=== PATIENT | female | born 1980 | race Caucasian/White ===

== ENCOUNTER → 2017-06-21 | Day surgery (SDC) | payer OTHER ==
[~2017-06-21] MED LIST: ADDERALL 30 MG30 MG; FENTANYL CITRATE/PF 100MCG/2 ML INJ ONE; HYOSCYAMINE SULFATE 0.5 MG/ML AMP ONE; LEVSIN0.125 MG; LIDOCAINE HCL 2% LOCAL INJ 5 ML SDV VIAL INJ ONE; LYRICA25 MG PO; LYRICA50 MG; MIDAZOLAM HCL 5MG/ML 2ML VIAL ONE; NORTRIPTYLINE H10 MG; PANTOPRAZOLE SO40 MG PO; PROPOFOL IV EMULSION 10 MG/ML 50 ML VIAL ONE
--- OUTSIDE RECORDS SUMMARY | 2017-06-21 10:14 | XMS REPORT ---
Author Author [facility] Address Unknown Phone Unavailable Care Team Providers Care Nurse Care Manager Name Role Phone [place] Unavailable Unavailable Problems This patient has no known problems. Allergies, Adverse Reactions, Alerts This patient has no known allergies or adverse reactions. Medications This patient has no known medications. 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 PYLOR IS NEGATIVE Signing Pathologist Direct Phone Line: [phone] signed by Bharat Figueroa MD on 05/14/2017 at 5:03 PMAbdominal pain Stomach biopsy The specimen is received in a formalin-filled container labeled with the patient's information and labeled "stomach biopsy" and consists of multiple fragments of tang-pink soft tissue ranging from 0.1 to 0.3 cm, submitted entirely in A1. CG/ew Performed. BASIC METABOLIC PANEL 2017-05-10 06:22:00 SODIUM (BEAKER) (test fnlr=844) 139 meq/L 136-145 POTASSIUM (BEAKER) (test pyeg=732) 3.8 meq/L 3.5-5.1 CHLORIDE (BEAKER) (test tvob=383) 106 meq/L 98-107 CO2 (BEAKER) (test szon=539) 26 meq/L 22-29 BLOOD UREA NITROGEN (BEAKER) (test nvgt=872) 10 mg/dL 7-21 CREATININE (BEAKER) (test yzea=968) 0.57 mg/dL 0.57-1.25 GLUCOSE RANDOM (BEAKER) (test btvk=653) 88 mg/dL 70-105 CALCIUM (BEAKER) (test uixz=636) 8.2 mg/dL 8.4-10.2 EGFR (BEAKER) (test xjmp=0278) 120 mL/min/1.73 sq m ESTIMATED GFR IS NOT ACCURATE CREATININE CLEARANCE IN PREDICTING GLOMERULAR FILTRATION RATE. ESTIMATED GFR IS NOT APPLICABLE FOR DIALYSIS PATIENTS. CBC W/PLT COUNT & AUTO [id number] 05:55:00* Test Item Value Reference Range Comments WHITE BLOOD CELL COUNT (BEAKER) (test raaw=366) 5.4 K/ L 3.5-10.5 RED BLOOD CELL COUNT (BEAKER) (test fmmx=370) 4.17 M/ L 3.93-5.22 HEMOGLOBIN (BEAKER) (test jsqm=586) 12.1 GM/DL 11.2-15.7 HEMATOCRIT (BEAKER) (test qnmk=901) 37.8 % 34.1-44.9 MEAN CORPUSCULAR VOLUME (BEAKER) (test fuuc=177) 90.6 fL 79.4-94.8 MEAN CORPUSCULAR HEMOGLOBIN (BEAKER) (test nizh=392) 29.0 pg 25.6-32.2 MEAN CORPUSCULAR HEMOGLOBIN CONC (BEAKER) (test oisr=278) 32.0 GM/DL 32.2- 35.5 RED CELL DISTRIBUTION WIDTH (BEAKER) (test krpi=797) 13.2 % 11.7-14.4 PLATELET COUNT (BEAKER) (test fuzc=489) 211 K/CU MM 150-450 MEAN PLATELET VOLUME (BEAKER) (test uwfe=334) 10.7 fL 9.4-12.3 NUCLEATED RED BLOOD CELLS (BEAKER) (test bhsn=367) 0 /100 WBC 0-0 NEUTROPHILS RELATIVE PERCENT (BEAKER) (test ksbp=440) 35 % LYMPHOCYTES RELATIVE PERCENT (BEAKER) (test kvlv=000) 54 % MONOCYTES RELATIVE PERCENT (BEAKER) (test urax=449) 8 % EOSINOPHILS RELATIVE PERCENT (BEAKER) (test kxpc=636) 3 % BASOPHILS RELATIVE PERCENT (BEAKER) (test aajq=221) 0 % NEUTROPHILS ABSOLUTE COUNT (BEAKER) (test bxvt=341) 1.87 K/ L 1.56-6.13 LYMPHOCYTES ABSOLUTE COUNT (BEAKER) (test ptzk=013) 2.92 K/ L 1.18-3.74 MONOCYTES ABSOLUTE COUNT (BEAKER) (test fksa=171) 0.42 K/ L 0.24-0.36 EOSINOPHILS ABSOLUTE COUNT (BEAKER) (test nsub=379) 0.14 K/ L 0.04-0.36 BASOPHILS ABSOLUTE COUNT (BEAKER) (test cfll=495) 0.02 K/ L 0.01-0.08 IMMATURE GRANULOCYTES-RELATIVE PERCENT (BEAKER) (test vvlv=1329) 0 % 0-1 BASIC METABOLIC [id number] 05:15:00* Test Item Value Reference Range Comments SODIUM (BEAKER) (test yntj=742) 139 meq/L 136-145 POTASSIUM (BEAKER) (test kjhd=150) 3.8 meq/L 3.5-5.1 CHLORIDE (BEAKER) (test pcry=527) 107 meq/L 98-107 CO2 (BEAKER) (test zrag=704) 25 meq/L 22-29 BLOOD UREA NITROGEN (BEAKER) (test sydl=374) 9 mg/dL 7-21 CREATININE (BEAKER) (test wusa=306) 0.59 mg/dL 0.57-1.25 GLUCOSE RANDOM (BEAKER) (test rktw=858) 96 mg/dL 70-105 CALCIUM (BEAKER) (test mdqu=611) 8.2 mg/dL 8.4-10.2 EGFR (BEAKER) (test arxm=7336) 115 mL/min/1.73 sq m ESTIMATED GFR IS NOT ACCURATE CREATININE CLEARANCE IN PREDICTING GLOMERULAR FILTRATION RATE. ESTIMATED GFR IS NOT APPLICABLE FOR DIALYSIS PATIENTS. CBC W/PLT COUNT & AUTO [id number] 05:06:00* Test Item Value Reference Range Comments WHITE BLOOD CELL COUNT (BEAKER) (test ivtc=966) 7.6 K/ L 3.5-10.5 RED BLOOD CELL COUNT (BEAKER) (test elcy=142) 4.16 M/ L 3.93-5.22 HEMOGLOBIN (BEAKER) (test ijyx=065) 12.3 GM/DL 11.2-15.7 HEMATOCRIT (BEAKER) (test ytgt=214) 38.7 % 34.1-44.9 MEAN CORPUSCULAR VOLUME (BEAKER) (test agmk=114) 93.0 fL 79.4-94.8 MEAN CORPUSCULAR HEMOGLOBIN (BEAKER) (test iqzv=343) 29.6 pg 25.6-32.2 MEAN CORPUSCULAR HEMOGLOBIN CONC (BEAKER) (test cdcu=534) 31.8 GM/DL 32.2- 35.5 RED CELL DISTRIBUTION WIDTH (BEAKER) (test hvnc=521) 13.2 % 11.7-14.4 PLATELET COUNT (BEAKER) (test burk=509) 210 K/CU MM 150-450 MEAN PLATELET VOLUME (BEAKER) (test nlri=927) 10.5 fL 9.4-12.3 NUCLEATED RED BLOOD CELLS (BEAKER) (test ghdy=532) 0 /100 WBC 0-0 NEUTROPHILS RELATIVE PERCENT (BEAKER) (test yxct=648) 59 % LYMPHOCYTES RELATIVE PERCENT (BEAKER) (test gfjp=579) 33 % MONOCYTES RELATIVE PERCENT (BEAKER) (test zdez=257) 7 % EOSINOPHILS RELATIVE PERCENT (BEAKER) (test sqtv=837) 1 % BASOPHILS RELATIVE PERCENT (BEAKER) (test gxps=914) 0 % NEUTROPHILS ABSOLUTE COUNT (BEAKER) (test hfwk=557) 4.47 K/ L 1.56-6.13 LYMPHOCYTES ABSOLUTE COUNT (BEAKER) (test sgls=553) 2.50 K/ L 1.18-3.74 MONOCYTES ABSOLUTE COUNT (BEAKER) (test viwc=466) 0.55 K/ L 0.24-0.36 EOSINOPHILS ABSOLUTE COUNT (BEAKER) (test oxea=643) 0.06 K/ L 0.04-0.36 BASOPHILS ABSOLUTE COUNT (BEAKER) (test yyjw=800) 0.01 K/ L 0.01-0.08 IMMATURE GRANULOCYTES-RELATIVE PERCENT (BEAKER) (test fert=1962) 0 % 0-1 CBC W/PLT COUNT & AUTO [id number] 09:52:00* Test Item Value Reference Range Comments WHITE BLOOD CELL COUNT (BEAKER) (test opju=650) 5.5 K/ L 3.5-10.5 RED BLOOD CELL COUNT (BEAKER) (test umzm=977) 4.06 M/ L 3.93-5.22 HEMOGLOBIN (BEAKER) (test wlqb=294) 11.7 GM/DL 11.2-15.7 HEMATOCRIT (BEAKER) (test imhl=119) 35.8 % 34.1-44.9 MEAN CORPUSCULAR VOLUME (BEAKER) (test plin=783) 88.2 fL 79.4-94.8 MEAN CORPUSCULAR HEMOGLOBIN (BEAKER) (test vyyh=835) 28.8 pg 25.6-32.2 MEAN CORPUSCULAR HEMOGLOBIN CONC (BEAKER) (test jmsm=905) 32.7 GM/DL 32.2- 35.5 RED CELL DISTRIBUTION WIDTH (BEAKER) (test xouk=338) 13.2 % 11.7-14.4 PLATELET COUNT (BEAKER) (test ohom=154) 204 K/CU MM 150-450 MEAN PLATELET VOLUME (BEAKER) (test zdhi=238) 10.5 fL 9.4-12.3 NUCLEATED RED BLOOD CELLS (BEAKER) (test bzph=901) 0 /100 WBC 0-0 NEUTROPHILS RELATIVE PERCENT (BEAKER) (test kuvg=135) 42 % LYMPHOCYTES RELATIVE PERCENT (BEAKER) (test odhg=965) 49 % MONOCYTES RELATIVE PERCENT (BEAKER) (test avvq=041) 8 % EOSINOPHILS RELATIVE PERCENT (BEAKER) (test fyka=391) 1 % BASOPHILS RELATIVE PERCENT (BEAKER) (test idgw=159) 0 % NEUTROPHILS ABSOLUTE COUNT (BEAKER) (test xlrw=322) 2.31 K/ L 1.56-6.13 LYMPHOCYTES ABSOLUTE COUNT (BEAKER) (test vfee=323) 2.71 K/ L 1.18-3.74 MONOCYTES ABSOLUTE COUNT (BEAKER) (test lpth=188) 0.42 K/ L 0.24-0.36 EOSINOPHILS ABSOLUTE COUNT (BEAKER) (test dwar=866) 0.06 K/ L 0.04-0.36 BASOPHILS ABSOLUTE COUNT (BEAKER) (test vnra=157) 0.02 K/ L 0.01-0.08 IMMATURE GRANULOCYTES-RELATIVE PERCENT (BEAKER) (test xtua=9450) 0 % 0-1 (MANUAL DIFFERENTIAL)2017-05-08 09:52:00* Test Item Value Reference Range Comments TOTAL COUNTED (BEAKER) (test ayjz=9392) BASIC METABOLIC [id number] 05:56:00* Test Item Value Reference Range Comments SODIUM (BEAKER) (test dpit=597) 138 meq/L 136-145 POTASSIUM (BEAKER) (test vjpa=327) 3.8 meq/L 3.5-5.1 CHLORIDE (BEAKER) (test miie=639) 106 meq/L 98-107 CO2 (BEAKER) (test ewie=638) 26 meq/L 22-29 BLOOD UREA NITROGEN (BEAKER) (test ssks=063) 8 mg/dL 7-21 CREATININE (BEAKER) (test ehij=888) 0.61 mg/dL 0.57-1.25 GLUCOSE RANDOM (BEAKER) (test pjrn=220) 88 mg/dL 70-105 CALCIUM (BEAKER) (test wcyh=129) 8.2 mg/dL 8.4-10.2 EGFR (BEAKER) (test ssho=2098) 111 mL/min/1.73 sq m ESTIMATED GFR IS NOT ACCURATE CREATININE CLEARANCE IN PREDICTING GLOMERULAR FILTRATION RATE. ESTIMATED GFR IS NOT APPLICABLE FOR DIALYSIS PATIENTS. MR, ABDOMEN, [id number] 11:13:00FINAL REPORT MR Abdomen dated 05/07/2017 Comment: Multiplanar T1 and T2-weighted images, respiratory triggered and breath-hold MRCP sequences were obtained. 3-D reconstruction of the abdomen was performed for better evaluation of the biliary tree. Gallbladder is surgically absent. Minimal fluid is seen in the gallbladder fossa and perihepatic space. MRCP demonstrates normal caliber intra and extra hepatic biliary ducts. No filling defect is seen in the biliary ducts to suggest choledocholithiasis. Common bile duct measures approximately 5 mm in size. Pancreatic duct is normal in caliber. Liver is normal in size without focal abnormality. Liver is suboptimally evaluated on the MRCP sequences. Spleen is normal in size. Pancreas and adrenals are unremarkable. Both kidneys are normal in size. There is trace bilateral pleural effusion. Impression:1. Minimal biliary dilatation secondary to postcholecystectomy changes.2. No choledocholithiasis.3. Minimal fluid collection in the gallbladder fossa and perihepatic space suggestive of post procedure changes.4. Trace bilateral pleural effusion. Signed: Josue Sidhu MDReport Verified Date/Time: 05/07/2017 11:13:18 Reading Location: [address] Body Reading Room [id number] 05:39:00* Test Item Value Reference Range Comments PHOSPHORUS (BEAKER) (test gyud=448) 3.4 mg/dL 2.3-4.7 [id number] 05:39:00* Test Item Value Reference Range Comments MAGNESIUM (BEAKER) (test pfdz=050) 1.7 mg/dL 1.6-2.6 BASIC METABOLIC [id number] 05:39:00* Test Item Value Reference Range Comments SODIUM (BEAKER) (test flpd=798) 139 meq/L 136-145 POTASSIUM (BEAKER) (test cucx=499) 4.0 meq/L 3.5-5.1 CHLORIDE (BEAKER) (test pfpo=682) 107 meq/L 98-107 CO2 (BEAKER) (test gefa=724) 27 meq/L 22-29 BLOOD UREA NITROGEN (BEAKER) (test ezwc=233) 5 mg/dL 7-21 CREATININE (BEAKER) (test nsbc=343) 0.57 mg/dL 0.57-1.25 GLUCOSE RANDOM (BEAKER) (test avat=396) 96 mg/dL 70-105 CALCIUM (BEAKER) (test dkem=769) 8.3 mg/dL 8.4-10.2 EGFR (BEAKER) (test wguz=5692) 120 mL/min/1.73 sq m ESTIMATED GFR IS NOT ACCURATE CREATININE CLEARANCE IN PREDICTING GLOMERULAR FILTRATION RATE. ESTIMATED GFR IS NOT APPLICABLE FOR DIALYSIS PATIENTS. CT, [id number] 13:57:00WITH PO CONTRASTFINAL REPORT CT abdomen and pelvis with contrast. INDICATION: Abdominal pain, unspecifiedRADIATING TO RIGHT UPPER QUADRANT COMPARISON: 08/20/2014 TECHNIQUE: Multiple contiguous transaxial images of the abdomen and pelvis were obtained following the administration of intravenous contrast. This exam was performed according to our departmental dose optimization program which includes automated exposure control, adjustment of the mA and/or kV according to patient size and/or use of iterative reconstructive technique. FINDINGS: The lung bases are clear. The osseous structures demonstrate mild degenerative change. The liver, spleen, pancreas, and adrenal glands are unremarkable. The gallbladder is absent. There is mild prominence of the common bile duct measuring up to 9 mm likely representing postsurgical change. No intrahepatic biliary dilatation. The stomach and duodenum are unremarkable. Both kidneys are unremarkable. The urinary bladder is unremarkable. An intrauterine device is seen. No pelvic masses are seen. There is a small cyst or dominant follicle in the left adnexa measuring 2.5 x 1.9 cm. There is trace free fluid in the pelvis. There is no bowel obstruction or perforation. The appendix appear within normal limits. There is no fluid collection or lymphadenopathy in the abdomen and pelvis. IMPRESSION:1. Status post cholecystectomy with mild prominence of the common bile duct which can be correlated with patient's LFTs. Signed: Matthew Salazar MDReport Verified Date/Time: 05/05/2017 13:57:11 Reading Location: [facility] C013X [facility] Consult Reading Room EN, [id number] 10:03:00* Test Item Value Reference Range Comments TEST URINE (BEAKER) (test wlpv=371) Negative [id number] 06:35:00* Test Item Value Reference Range Comments PHOSPHORUS (BEAKER) (test chgx=779) 2.8 mg/dL 2.3-4.7 [id number] 06:35:00* Test Item Value Reference Range Comments MAGNESIUM (BEAKER) (test cpon=037) 1.6 mg/dL 1.6-2.6 BASIC METABOLIC [id number] 06:35:00* Test Item Value Reference Range Comments SODIUM (BEAKER) (test hnka=221) 139 meq/L 136-145 POTASSIUM (BEAKER) (test eknz=203) 4.2 meq/L 3.5-5.1 CHLORIDE (BEAKER) (test hnca=221) 109 meq/L 98-107 CO2 (BEAKER) (test fkkq=592) 25 meq/L 22-29 BLOOD UREA NITROGEN (BEAKER) (test ieqg=934) 14 mg/dL 7-21 CREATININE (BEAKER) (test yjdi=949) 0.60 mg/dL 0.57-1.25 GLUCOSE RANDOM (BEAKER) (test xnav=867) 91 mg/dL 70-105 CALCIUM (BEAKER) (test qeze=039) 8.0 mg/dL 8.4-10.2 EGFR (BEAKER) (test oeyf=9022) 113 mL/min/1.73 sq m ESTIMATED GFR IS NOT ACCURATE CREATININE CLEARANCE IN PREDICTING GLOMERULAR FILTRATION RATE. ESTIMATED GFR IS NOT APPLICABLE FOR DIALYSIS PATIENTS. CBC W/PLT COUNT & AUTO [id number] 06:26:00* Test Item Value Reference Range Comments WHITE BLOOD CELL COUNT (BEAKER) (test ardj=995) 5.2 K/ L 3.5-10.5 RED BLOOD CELL COUNT (BEAKER) (test tdob=896) 4.13 M/ L 3.93-5.22 HEMOGLOBIN (BEAKER) (test jigu=371) 12.1 GM/DL 11.2-15.7 HEMATOCRIT (BEAKER) (test jigm=769) 38.1 % 34.1-44.9 MEAN CORPUSCULAR VOLUME (BEAKER) (test nwxb=814) 92.3 fL 79.4-94.8 MEAN CORPUSCULAR HEMOGLOBIN (BEAKER) (test iail=131) 29.3 pg 25.6-32.2 MEAN CORPUSCULAR HEMOGLOBIN CONC (BEAKER) (test hcqk=525) 31.8 GM/DL 32.2- 35.5 RED CELL DISTRIBUTION WIDTH (BEAKER) (test gouc=242) 13.9 % 11.7-14.4 PLATELET COUNT (BEAKER) (test nefm=081) 222 K/CU MM 150-450 MEAN PLATELET VOLUME (BEAKER) (test eoov=385) 10.1 fL 9.4-12.3 NUCLEATED RED BLOOD CELLS (BEAKER) (test frsy=558) 0 /100 WBC 0-0 NEUTROPHILS RELATIVE PERCENT (BEAKER) (test vdvc=307) 51 % LYMPHOCYTES RELATIVE PERCENT (BEAKER) (test ihfj=102) 36 % MONOCYTES RELATIVE PERCENT (BEAKER) (test ubmt=701) 11 % EOSINOPHILS RELATIVE PERCENT (BEAKER) (test odnp=885) 1 % BASOPHILS RELATIVE PERCENT (BEAKER) (test mguq=812) 0 % NEUTROPHILS ABSOLUTE COUNT (BEAKER) (test afdx=024) 2.65 K/ L 1.56-6.13 LYMPHOCYTES ABSOLUTE COUNT (BEAKER) (test dchg=535) 1.85 K/ L 1.18-3.74 MONOCYTES ABSOLUTE COUNT (BEAKER) (test smwp=473) 0.55 K/ L 0.24-0.36 EOSINOPHILS ABSOLUTE COUNT (BEAKER) (test phod=427) 0.06 K/ L 0.04-0.36 BASOPHILS ABSOLUTE COUNT (BEAKER) (test yozq=607) 0.02 K/ L 0.01-0.08 IMMATURE GRANULOCYTES-RELATIVE PERCENT (BEAKER) (test lsry=5244) 0 % 0-1 URINALYSIS W/ [id number] 18:51:00* Test Item Value Reference Range Comments COLOR (BEAKER) (test fkqt=146) Yellow CLARITY (BEAKER) (test tbco=823) Clear SPECIFIC GRAVITY UA (BEAKER) (test uphz=525) 1.020 1.001-1.035 PH UA (BEAKER) (test vvkd=059) 7.0 5.0-8.0 PROTEIN UA (BEAKER) (test lhwm=453) 10 mg/dL Negative GLUCOSE UA (BEAKER) (test soup=176) Negative Negative KETONES UA (BEAKER) (test fbmg=577) 10 mg/dL Negative BILIRUBIN UA (BEAKER) (test fmol=378) Negative Negative BLOOD UA (BEAKER) (test abvj=988) Negative Negative NITRITE UA (BEAKER) (test ajza=165) Negative Negative LEUKOCYTE ESTERASE UA (BEAKER) (test cyzv=291) Trace Negative UROBILINOGEN UA (BEAKER) (test nfyn=522) 2.0 mg/dL 0.2-1.0 RBC UA (BEAKER) (test ubky=055) 2 /HPF WBC UA (BEAKER) (test aboa=936) 1 /HPF BACTERIA (BEAKER) (test jqqj=943) Rare MUCUS (BEAKER) (test tibx=7968) Many SQUAMOUS EPITHELIAL (BEAKER) (test faca=527) < /HPF HYALINE CASTS (BEAKER) (test jwma=655) 2 /LPF SOURCE(BEAKER) (test mhho=1172) Urine, Voided U/S, ABDOMINAL, [id number] 17:13:00Reason for exam:->abdominal painFINAL REPORT Abdominal Ultrasound Clinical Diagnosis : Abdomen pain Comparison: No comparison Technique: Multiple transaxial and longitudinal images were obtained through the abdomen with real time ultrasonography. Five MHz transducer was utilized. 91 images were submitted for interpretation. Report:Liver: The liver measures 15.3 cm in the right midaxillary line. There are no focal masses. The echogenicity is within normal limits.Spleen: The spleen measures 8.3 cm. in the left mid axillary line. Gallbladder: The patient is status post cholecystectomyBiliary tree: There is no evidence of intra or extra hepatic biliary ductal dilatation. The common bile duct measures seven mm.Portal vein: The portal vein measures 10 mm. Pancreas: The pancreatic tail is not well seen secondary to overlying bowel gas. Ascites: NegativePleural Effusion: NegativeRight kidney: The right kidney measures 11.7 cm. in length without evidence of hydronephrosis.Left kidney: The left kidney measures 11.3 cm. in length without evidence of hydronephrosis.IVC/Aorta: Partially seen segments demonstrate no abnormality. Impression:Status post cholecystectomy Signed: Bharat Aponte MDReport Verified Date/Time: 05/04/2017 17:13:48 Reading Location: [address] Ultrasound Reading Room A GLUTAMYL TRANSFERASE (GGT)05-04 16:50:00* Test Item Value Reference Range Comments GAMMA GLUTAMYL TRANSFERASE (BEAKER) (test coso=301) 19 U/L 9-64 [id number] 16:50:00* Test Item Value Reference Range Comments LIPASE (BEAKER) (test gouy=425) 17 U/L 8-78 [id number] 16:50:00* Test Item Value Reference Range Comments AMYLASE (BEAKER) (test fgem=126) 51 U/L 25-125 BASIC METABOLIC [id number] 16:50:00* Test Item Value Reference Range Comments SODIUM (BEAKER) (test bmdm=952) 141 meq/L 136-145 POTASSIUM (BEAKER) (test zwcg=829) 4.1 meq/L 3.5-5.1 CHLORIDE (BEAKER) (test uxhd=703) 105 meq/L 98-107 CO2 (BEAKER) (test ikxh=499) 29 meq/L 22-29 BLOOD UREA NITROGEN (BEAKER) (test xgbr=803) 14 mg/dL 7-21 CREATININE (BEAKER) (test djsy=068) 0.60 mg/dL 0.57-1.25 GLUCOSE RANDOM (BEAKER) (test zapn=766) 91 mg/dL 70-105 CALCIUM (BEAKER) (test wyqg=903) 8.9 mg/dL 8.4-10.2 EGFR (BEAKER) (test gtxs=7862) 113 mL/min/1.73 sq m ESTIMATED GFR IS NOT ACCURATE CREATININE CLEARANCE IN PREDICTING GLOMERULAR FILTRATION RATE. ESTIMATED GFR IS NOT APPLICABLE FOR DIALYSIS PATIENTS. HEPATIC FUNCTION [id number] 16:50:00* Test Item Value Reference Range Comments TOTAL PROTEIN (BEAKER) (test qtvg=498) 6.7 gm/dL 6.0-8.3 ALBUMIN (BEAKER) (test wwru=8892) 4.0 g/dL 3.5-5.0 BILIRUBIN TOTAL (BEAKER) (test toyj=220) 0.3 mg/dL 0.2-1.2 BILIRUBIN DIRECT (BEAKER) (test qzlt=493) 0.1 mg/dL 0.1-0.5 ALKALINE PHOSPHATASE (BEAKER) (test hgjt=003) 49 U/L 40-150 AST (SGOT) (BEAKER) (test szzk=412) 14 U/L 5-34 ALT (SGPT) (BEAKER) (test ajbp=182) 14 U/L 6-55 [id number] 16:33:00* Test Item Value Reference Range Comments PARTIAL THROMBOPLASTIN TIME (BEAKER) (test dlne=618) 28.4 seconds 22.5-36.0 PROTHROMBIN TIME/[id number] 16:32:00* Test Item Value Reference Range Comments PROTIME (BEAKER) (test xirx=425) 14.6 seconds 11.7-14.7 INR (BEAKER) (test ivvh=655) 1.1 <=5.9 RECOMMENDED COUMADIN/WARFARIN INR THERAPY RANGESSTANDARD DOSE: 2.0 - 3.0 Includes: PROPHYLAXIS for venous thrombosis, systemic embolization; TREATMENT for venous thrombosis and/or pulmonary embolus.HIGH RISK: Target INR is 2.5-3.5 for patients with mechanical heart valves.CBC W/PLT COUNT & AUTO [id number] 16:22:00* Test Item Value Reference Range Comments WHITE BLOOD CELL COUNT (BEAKER) (test xnez=054) 5.6 K/ L 3.5-10.5 RED BLOOD CELL COUNT (BEAKER) (test mvda=078) 4.27 M/ L 3.93-5.22 HEMOGLOBIN (BEAKER) (test xwwy=175) 12.5 GM/DL 11.2-15.7 HEMATOCRIT (BEAKER) (test phwl=418) 39.1 % 34.1-44.9 MEAN CORPUSCULAR VOLUME (BEAKER) (test sttm=360) 91.6 fL 79.4-94.8 MEAN CORPUSCULAR HEMOGLOBIN (BEAKER) (test xgqm=350) 29.3 pg 25.6-32.2 MEAN CORPUSCULAR HEMOGLOBIN CONC (BEAKER) (test jjqm=068) 32.0 GM/DL 32.2- 35.5 RED CELL DISTRIBUTION WIDTH (BEAKER) (test mdtd=653) 14.1 % 11.7-14.4 PLATELET COUNT (BEAKER) (test ahrs=257) 245 K/CU MM 150-450 MEAN PLATELET VOLUME (BEAKER) (test kdzt=595) 10.0 fL 9.4-12.3 NUCLEATED RED BLOOD CELLS (BEAKER) (test hfbl=795) 0 /100 WBC 0-0 NEUTROPHILS RELATIVE PERCENT (BEAKER) (test iooi=798) 65 % LYMPHOCYTES RELATIVE PERCENT (BEAKER) (test jxvn=235) 26 % MONOCYTES RELATIVE PERCENT (BEAKER) (test vkhz=143) 8 % EOSINOPHILS RELATIVE PERCENT (BEAKER) (test ymmu=188) 0 % BASOPHILS RELATIVE PERCENT (BEAKER) (test bbrb=885) 1 % NEUTROPHILS ABSOLUTE COUNT (BEAKER) (test exah=758) 3.63 K/ L 1.56-6.13 LYMPHOCYTES ABSOLUTE COUNT (BEAKER) (test vzhj=279) 1.48 K/ L 1.18-3.74 MONOCYTES ABSOLUTE COUNT (BEAKER) (test bqnf=870) 0.43 K/ L 0.24-0.36 EOSINOPHILS ABSOLUTE COUNT (BEAKER) (test gdku=161) 0.02 K/ L 0.04-0.36 BASOPHILS ABSOLUTE COUNT (BEAKER) (test vrej=737) 0.03 K/ L 0.01-0.08 IMMATURE GRANULOCYTES-RELATIVE PERCENT (BEAKER) (test yyja=7809) 0 % 0-1
--- OUTSIDE RECORDS SUMMARY | 2017-06-21 10:14 | XMS REPORT | Clinical Summary ---
Author Author ANUP [facility] Address Unknown Phone Unavailable Care Team Providers Care Cone Machine Operator Name Role Phone PCP Unavailable Allergies No Known Allergies Current Medications Prescription Sig. Disp. Refills Start End Date Status Date levonorgestrel (MIRENA) 52 mg by Intrauterine Active 20 mcg/24 hr (5 years) route. IUD acetaminophen-codeine Take 1 tablet by mouth 08/19/19 Active (TYLENOL #3) 300-30 mg every 6 (six) hours as 15 per tablet needed . LIPASE/PROTEASE/AMYLASE Take by mouth 3 (three) Active (CREON ORAL) times daily. pantoprazole (PROTONIX) Take 1 tablet (40 mg 60 tablet 2 05/10/19 Active 40 MG tablet total) by mouth 2 (two) 18 times daily before meals. acetaminophen (TYLENOL) Take 2 tablets (650 mg 30 tablet 0 05/10/19 05/05/19 Active 325 MG tablet total) by mouth every 4 18 19 (four) hours as needed for up to 360 days. pregabalin (LYRICA) 100 Take 1 capsule (100 mg 60 capsule 1 05/10/19 05/10/19 Active MG capsule total) by mouth 2 (two) 18 19 times daily. Max Daily Amount: 200 mg pregabalin (LYRICA) 100 Take 1 capsule (100 mg 60 capsule 1 05/10/19 05/10/19 Discontin MG capsule total) by mouth 2 (two) 18 18 ued times daily. Max Daily Amount: 200 mg hyoscyamine Take 3 tablets (375 mcg 30 tablet 0 05/10/19 05/21/19 (ANASPAZ,LEVSIN) 0.125 mg total) by mouth 2 (two) 18 18 tablet times daily for 10 days. Active Problems Problem Noted Date Acute superficial gastritis without hemorrhage 05/10/2017 Epigastric pain 05/06/2017 Abdominal pain 05/04/2017 Encounters Date Type Specialty Care Team Description 05/10/2017 Procedure Pass Gastroenterology 05/10/2017 Surgery Gastroenterology Fadumo San MD UPPER ENDOSCOPY,BIOPSY 05/09/2017 Anesthesia Gastroenterology Umm Sanderson MD Event 05/04/2017 [facility] General Internal Medicine Rhys Roberson MD Epigastric pain;History - Encounter Perla Lomax of chronic 05/10/2017 MD Brad pancreatitis;Dilated bile Suleman Teran MD duct;Acute superficial Suha Rojo MD gastritis without hemorrhage after 06/20/2016 Social History Tobacco Use Types Packs/Day Years Used Date Former Smoker Smokeless Tobacco: Never Used Comments: quit 8 months ago Alcohol Use Drinks/Week oz/Week Comments No Sex Assigned at Date Recorded Not on file Last Filed Vital Signs Vital Sign Reading Time Taken Blood Pressure 143/74 05/10/2017 4:14 PM SHEETER HELPER Pulse 64 05/10/2017 4:14 PM SHEETER HELPER Temperature 36.9 C (98.4 F) 05/10/2017 4:14 PM SHEETER HELPER Respiratory Rate 18 05/10/2017 4:14 PM SHEETER HELPER Oxygen Saturation 98% 05/10/2017 4:14 PM SHEETER HELPER Inhaled Oxygen - - Concentration Weight 80.3 kg (177 lb) 05/04/2017 2:33 PM SHEETER HELPER Height 160 cm (5' 3") 05/04/2017 2:33 PM SHEETER HELPER Body Mass Index 31.35 05/04/2017 2:33 PM SHEETER HELPER Plan of Treatment Not on file Procedures Procedure Name Priority Date/Time Associated Diagnosis Comments UPPER 05/10/2017 Abdominal pain ENDOSCOPY,ULTRASOUND 3:00 PM SHEETER HELPER UPPER ENDOSCOPY,BIOPSY 05/10/2017 Abdominal pain 3:00 PM SHEETER HELPER after 06/20/2016 Results * REPORT OF PROCEDURE - ENDOSCOPY URL (05/10/2017 3:23 PM) * Tissue Exam (05/10/2017 2:35 PM) Component Value Ref Range Case Report Surgical Pathology Report Case: [id number] Authorizing Provider: Fadumo San MD Collected: 05/10/2017 1435 Ordering Location: [address] Received: 05/11/2017 0745 Service Pathologist: Bharat Figueroa MD Specimen: Stomach DIAGNOSIS STOMACH, BIOPSIES: - GASTRIC ANTRAL MUCOSA WITH FEATURES OF REACTIVE GASTROPATHY; FOCAL INTESTINAL METAPLASIA IN ONE FRAGMENT - GASTRIC BODY MUCOSA WITH MINIMAL CHRONIC INACTIVE GASTRITIS - ALL BIOPSIES NEGATIVE FOR ATYPIA, DYSPLASIA, OR MALIGNANCY - THE WARTHIN-STARRY STAIN FOR H. PYLOR IS NEGATIVE Signing Pathologist Direct Phone Line: [phone] CLINICAL HISTORY Abdominal pain SPECIMEN SOURCE Stomach biopsy GROSS DESCRIPTION The specimen is received in a formalin-filled container labeled with the patient's information and labeled "stomach biopsy" and consists of multiple fragments of tang-pink soft tissue ranging from 0.1 to 0.3 cm, submitted entirely in A1. CG/ew MICROSCOPIC DESCRIPTION Performed. Specimen Performing Laboratory Tissue - Stomach [place] [id number] * CBC with platelet count + automated diff (05/10/2017 5:05 AM) Only the most recent of 5 results within the time period is included. Component Value Ref Range WBC 5.4 3.5 - 10.5 K/ L RBC 4.17 3.93 - 5.22 M/ L Hemoglobin 12.1 11.2 - 15.7 GM/DL Hematocrit 37.8 34.1 - 44.9 % MCV 90.6 79.4 - 94.8 fL MCH 29.0 25.6 - 32.2 pg MCHC 32.0 (L) 32.2 - 35.5 GM/DL RDW 13.2 11.7 - 14.4 % Platelets 211 150 - 450 K/CU MM MPV 10.7 9.4 - 12.3 fL nRBC 0 0 - 0 /100 WBC % Neutros 35 % % Lymphs 54 % % Monos 8 % % Eos 3 % % Baso 0 % # Neutros 1.87 1.56 - 6.13 K/ L # Lymphs 2.92 1.18 - 3.74 K/ L # Monos 0.42 (H) 0.24 - 0.36 K/ L # Eos 0.14 0.04 - 0.36 K/ L # Baso 0.02 0.01 - 0.08 K/ L Immature 0 0 - 1 % Granulocytes-Relative Specimen Performing Laboratory Blood - Arm, Left [address] [address] * CBC with platelet count + automated diff (05/10/2017 5:05 AM) Only the most recent of 5 results within the time period is included. Specimen Performing Laboratory Blood Narrative The following orders were created for panel order CBC with platelet count + automated diff. Procedure Abnormality Status --------- - ------ CBC with platelet count ...[[id number]]AbnormalFinal result Manual Differential[[id number]] Please view results for these tests on the individual orders. * Basic Metabolic Panel (05/10/2017 5:05 AM) Only the most recent of 6 results within the time period is included. Component Value Ref Range Sodium 139 136 - 145 meq/L Potassium 3.8 3.5 - 5.1 meq/L Chloride 106 98 - 107 meq/L CO2 26 22 - 29 meq/L BUN 10 7 - 21 mg/dL Creatinine 0.57 0.57 - 1.25 mg/dL Glucose 88 70 - 105 mg/dL Calcium 8.2 (L) 8.4 - 10.2 mg/dL EGFR 120Comment: ESTIMATED GFR IS NOT ACCURATE mL/min/1.73 sq m CREATININE CLEARANCE IN PREDICTING GLOMERULAR FILTRATION RATE. ESTIMATED GFR IS NOT APPLICABLE FOR DIALYSIS PATIENTS. Specimen Performing Laboratory Blood - Arm, [address] [address] * Manual Differential (05/08/2017 4:19 AM) Component Value Ref Range Total Counted Specimen Performing Laboratory Blood - Arm, [address] [address] * MR abdomen without IV contrast MRCP (05/07/2017 10:35 AM) Specimen Performing Laboratory GE RIS Narrative FINAL REPORT MR Abdomen dated 05/07/2017 Comment: Multiplanar T1 and T2-weighted images, respiratory triggered and breath-hold MRCP sequences were obtained.3-D reconstruction of the abdomen was performed for [...] size. There is trace bilateral pleural effusion. Impression: 1. Minimal biliary dilatation secondary to postcholecystectomy changes. 2. No choledocholithiasis. 3. Minimal fluid collection in the gallbladder fossa and perihepatic space suggestive of post procedure changes. 4. Trace bilateral pleural effusion. Signed: Josue Sidhu MD Report Verified Date/Time:05/07/2017 11:13:18 Reading Location: [facility] C013Y CT Body Reading Room Procedure Note Interface, External Ris In - 05/07/2017 11:15 AM SHEETER HELPER FINAL REPORT MR Abdomen dated 05/07/2017 Comment: Multiplanar [...] size. There is trace bilateral pleural effusion. Impression: 1. Minimal biliary dilatation secondary to postcholecystectomy changes. 2. No choledocholithiasis. 3. Minimal fluid collection in the gallbladder fossa and perihepatic space suggestive of post procedure changes. 4. Trace bilateral pleural effusion. Signed: Josue Sidhu MD Report Verified Date/Time: 05/07/2017 11:13:18 Reading Location: [facility] C013Y CT Body Reading Room * Phosphorus (05/06/2017 4:48 AM) Only the most recent of 2 results within the time period is included. Component Value Ref Range Phosphorus 3.4 2.3 - 4.7 mg/dL Specimen Performing Laboratory Blood - Arm, Left [facility] [address] [place] [address] * Magnesium (05/06/2017 4:48 AM) Only the most recent of 2 results within the time period is included. Component Value Ref Range Magnesium 1.7 1.6 - 2.6 mg/dL Specimen Performing Laboratory Blood - Arm, Left [facility] [address] [place] [address] * CT abdomen/pelvis with IV contrast (05/05/2017 1:16 PM) Specimen Performing Laboratory GE RIS Narrative FINAL REPORT CT abdomen and pelvis with contrast. INDICATION: Abdominal pain, unspecified RADIATING TO RIGHT UPPER QUADRANT COMPARISON:08/20/2014 TECHNIQUE: Multiple contiguous transaxial images of the [...] or lymphadenopathy in the abdomen and pelvis. IMPRESSION: 1. Status post cholecystectomy with mild prominence of the common bile duct which can be correlated with patient's LFTs. Signed: Matthew Salazar MD Report Verified Date/Time:05/05/2017 13:57:11 Reading Location: [facility] C013X [facility] Consult Reading Room Procedure Note Interface, External Ris In - 05/05/2017 1:59 PM SHEETER HELPER FINAL REPORT CT abdomen and pelvis with contrast. INDICATION: Abdominal pain, unspecified RADIATING TO RIGHT UPPER QUADRANT COMPARISON: 08/20/2014 TECHNIQUE: [...] or lymphadenopathy in the abdomen and pelvis. IMPRESSION: 1. Status post cholecystectomy with mild prominence of the common bile duct which can be correlated with patient's LFTs. Signed: Matthew Salazar MD Report Verified Date/Time: 05/05/2017 13:57:11 Reading Location: [address] Consult Reading Room * Pancreatic elastase, fecal (05/05/2017 11:58 AM) Component Value Ref Range Pancreatic Elastase-1 >500 mcg/g Comment: Adult and Pediatric Reference Ranges for Pancreatic Elastase-1: Normal: >200 mcg/g Moderate Pancreatic Insufficiency: 100-200 mcg/g Severe Pancreatic Insufficiency: <100 mcg/g Elastase-1 (E-1) assay results are expressed in mcg/g, which represent mcg E1/g feces. It is not necessary to interrupt enzyme substitution therapy. Specimen Performing Laboratory Stool [facility] [address] [address] Narrative Performing Lab [facility] [address] [address] Primitivo Vallecillo MD, PhD * Screen, urine (05/05/2017 8:40 AM) Component Value Ref Range Preg Test, Ur Negative Specimen Performing Laboratory Urine - Urine, Voided [address] [address] * Urinalysis w/Microscopic (05/04/2017 6:04 PM) Component Value Ref Range Color, UA Yellow Clarity, UA Clear Specific [place], UA 1.020 1.001 - 1.035 pH, UA 7.0 5.0 - 8.0 Protein, UA 10 mg/dL (A) Negative Glucose, UA Negative Negative Ketones, UA 10 mg/dL (A) Negative Bilirubin, UA Negative Negative Blood, UA Negative Negative Nitrite, UA Negative Negative Leukocytes, UA Trace (A) Negative Urobilinogen, UA 2.0 (H) 0.2 - 1.0 mg/dL RBC, UA 2 /HPF WBC, UA 1 /HPF Bacteria, UA Rare Mucus Many Squam Epithel, UA <1 /HPF Hyaline Casts, UA 2 /LPF Specimen Source Urine, Voided Specimen Performing Laboratory Urine - Urine, [place] [id number] * US abdomen complete (05/04/2017 4:37 PM) Specimen Performing Laboratory [employer] RIS Narrative FINAL REPORT Abdominal Ultrasound Clinical Diagnosis: Abdomen pain Comparison: No comparison Technique: Multiple transaxial and longitudinal images were obtained through the abdomen with real time ultrasonography.Five MHz transducer was utilized.91 images were submitted for interpretation. Report: Liver: The liver measures 15.3 cm in the right midaxillary line. There are no focal masses.The echogenicity is within normal limits. Spleen: The spleen measures 8.3 cm. in the left mid axillary line. Gallbladder: The patient is status post cholecystectomy Biliary tree: There is no evidence of intra or extra hepatic biliary ductal dilatation.The common bile duct measures seven mm. Portal vein: The portal vein measures 10 mm. Pancreas:The pancreatic tail is not well seen secondary to overlying bowel gas. Ascites: Negative Pleural Effusion: Negative Right kidney: The right kidney measures 11.7 cm. in length without evidence of hydronephrosis. Left kidney: Theleft kidney measures 11.3 cm. in length without evidence of hydronephrosis. IVC/Aorta: Partially seen segments demonstrate no abnormality. Impression: Status post cholecystectomy Signed: Bharat Aponte MD Report Verified Date/Time:05/04/2017 17:13:48 Reading Location: [address] Ultrasound Reading Room Procedure Note Interface, External Ris In - 05/04/2017 5:16 PM SHEETER HELPER FINAL REPORT Abdominal Ultrasound Clinical Diagnosis: Abdomen pain Comparison: No comparison Technique: Multiple transaxial and longitudinal images were obtained through the abdomen with real time ultrasonography. Five MHz transducer was utilized. 91 images were submitted for interpretation. Report: Liver: The liver measures 15.3 cm in the right midaxillary line. There are no focal masses. The echogenicity is within normal limits. Spleen: The spleen measures 8.3 cm. in the left mid axillary line. Gallbladder: The patient is status post cholecystectomy Biliary tree: There is no evidence of intra or extra hepatic biliary ductal dilatation. The common bile duct measures seven mm. Portal vein: The portal vein measures 10 mm. Pancreas: The pancreatic tail is not well seen secondary to overlying bowel gas. Ascites: Negative Pleural Effusion: Negative Right kidney: The right kidney measures 11.7 cm. in length without evidence of hydronephrosis. Left kidney: The left kidney measures 11.3 cm. in length without evidence of hydronephrosis. IVC/Aorta: Partially seen segments demonstrate no abnormality. Impression: Status post cholecystectomy Signed: Bharat Aponte MD Report Verified Date/Time: 05/04/2017 17:13:48 Reading Location: [address] Ultrasound Reading Room * aPTT (05/04/2017 4:06 PM) Component Value Ref Range PTT 28.4 22.5 - 36.0 seconds Specimen Performing Laboratory Blood - Arm, [place] [address] * Prothrombin time/INR (05/04/2017 4:06 PM) Component Value Ref Range Protime 14.6 11.7 - 14.7 seconds INR 1.1 <=5.9 Specimen Performing Laboratory Blood - Arm, [address] [address] Narrative RECOMMENDED COUMADIN/WARFARIN INR THERAPY RANGES STANDARD DOSE: 2.0 - 3.0 Includes: PROPHYLAXIS for venous thrombosis, systemic embolization; TREATMENT for venous thrombosis and/or pulmonary embolus. HIGH RISK: Target INR is 2.5-3.5 for patients with mechanical heart valves. * Gamma Glutamyl Transferase (GGT) (05/04/2017 4:06 PM) Component Value Ref Range GGT 19 9 - 64 U/L Specimen Performing Laboratory Blood - Arm, [address] [address] * Lipase (05/04/2017 4:01 PM) Component Value Ref Range Lipase 17 8 - 78 U/L Specimen Performing Laboratory Blood - Arm, [address] [address] * Amylase (05/04/2017 4:01 PM) Component Value Ref Range Amylase 51 25 - 125 U/L Specimen Performing Laboratory Blood - Arm, [address] [address] * Hepatic function panel (05/04/2017 4:01 PM) Component Value Ref Range Protein, Total 6.7 6.0 - 8.3 gm/dL Albumin 4.0 3.5 - 5.0 g/dL Total Bilirubin 0.3 0.2 - 1.2 mg/dL Bilirubin, Direct 0.1 0.1 - 0.5 mg/dL Alkaline Phosphatase 49 40 - 150 U/L AST 14 5 - 34 U/L ALT 14 6 - 55 U/L Specimen Performing Laboratory Blood - Arm, [address] [address] after 06/20/2016
--- NOTE | 2017-06-21 13:18 | Operative Report ---
DATE OF PROCEDURE: June 21, 2017 PROCEDURE PERFORMED: Colonoscopy and polypectomy with biopsies. INDICATIONS FOR COLONOSCOPY: Diarrhea. Fecal urgency. MEDICATION: Patient was done under MAC. Please see anesthesiologist's note. PROCEDURE: With the patient in the left lateral decubitus position, the flexible fiberoptic Olympus colonoscope was inserted into the rectum with ease and advanced all the way to the cecum. Mucosa overlying the cecum appeared to be within normal limits. The ileocecal valve was intubated, and the scope was advanced into the terminal ileum. Biopsies were obtained. The scope was then withdrawn back into the colon. It was then withdrawn slowly. Mucosa overlying the ascending and transverse appeared to be within normal limits. One polyp was snared from the descending colon. There were some patchy mild inflammatory changes noted in the left colon. Random biopsies were obtained. Diverticular disease was noted in the sigmoid colon. The mucosa overlying the rectum revealed some mild inflammatory changes, and biopsies were obtained. The scope was then retroflexed into the distal rectum, and the area around the dentate line appeared to be within normal limits. The scope was then straightened out. The rectosigmoid area as well as the distal rectal area were decompressed. Scope was subsequently withdrawn after securing an adequate stool specimen that was sent for the appropriate stool studies. Patient tolerated the procedure well. IMPRESSION 1. Rule out mild, patchy, left-sided colitis. 2. Descending colon polyps, snared. 3. Diverticulosis. 4. Proctitis, mild. PLAN: Follow up histology. Follow up stool studies. Initiate Bentyl 10 mg 1 p.o. t.i.d. Start VSL #3 DS 1 p.o. t.i.d. Patient will need a followup colonoscopy in 3 to 5 years. Job#: [id number]
[2017-06-21 13:31] LABS: C DIFFICILE TOXIN A&B AMP PROB NEGATIVE (NEGATIVE); WBC,FECAL (FECAL LACTOFERRIN) NEGATIVE (NEGATIVE)
== END | disposition home or self-care (01) ==
LOC: OR 10:12
PROVIDERS: ATTEND Internal Medicine Gastroenterology
DX: K52.9 Noninfective gastroenteritis and colitis, unspecified (principal); D12.4 Benign neoplasm of descending colon; K62.89 Other specified diseases of anus and rectum; K57.30 Diverticulosis of large intestine without perforation or abscess without bleeding; R10.11 Right upper quadrant pain; R68.81 Early satiety; G89.29 Other chronic pain; K86.1 Other chronic pancreatitis; F17.210 Nicotine dependence, cigarettes, uncomplicated; Z68.30 Body mass index [BMI] 30.0-30.9, adult
CPT/HCPCS: 45380; 45385; 81025; 83630; 83993; 87045; 87177; 87328; 87493; J1980; J2001; J2250

== ENCOUNTER 2017-09-03 22:45 | Emergency (ER) | payer OTHER ==
[~2017-09-03] VITALS: Ht 160 cm; Wt 74.1 kg
[~2017-09-03 22:45] MED LIST changes: -FENTANYL CITRATE/PF 100MCG/2 ML INJ ONE; -HYOSCYAMINE SULFATE 0.5 MG/ML AMP ONE; -LIDOCAINE HCL 2% LOCAL INJ 5 ML SDV VIAL INJ ONE; -MIDAZOLAM HCL 5MG/ML 2ML VIAL ONE; -PROPOFOL IV EMULSION 10 MG/ML 50 ML VIAL ONE
[2017-09-03] MEDS ORDERED: CLINDAMYCIN PHOS 600 MG/ 4 ML VIAL IM ONE (23:15)
[2017-09-03] MEDS ORDERED: KETOROLAC TROMETHAMINE 60 MG/2 ML VIAL IM ONE (23:15)
[2017-09-04] MEDS ORDERED: AUGMENTIN 875-1 EACH PO (00:10)
[2017-09-04 00:17] VITALS: BP 129/76
== END 2017-09-04 00:19 | disposition home or self-care (01) ==
LOC: FSED 22:45
DX: S61.230A Puncture wound without foreign body of right index finger without damage to nail, initial encounter (principal); S61.250A Open bite of right index finger without damage to nail, initial encounter; W55.01XA Bitten by cat, initial encounter; Y92.018 Other place in single-family (private) house as the place of occurrence of the external cause; K29.50 Unspecified chronic gastritis without bleeding; K86.1 Other chronic pancreatitis
CPT/HCPCS: 73130; 96372; 99282; J1885

== ENCOUNTER 2018-08-12 11:20 | Emergency (ER) | payer OTHER ==
[~2018-08-12] VITALS: Ht 160 cm; Wt 86.2 kg
[~2018-08-12 11:20] MED LIST changes: +AUGMENTIN 875-1 EACH PO
--- OUTSIDE RECORDS SUMMARY | 2018-08-12 11:24 | XMS REPORT | Clinical Summary ---
Author Author ANUP [facility] Address Unknown Phone Unavailable Care Team Providers Care Garment Patternmaker Name Role Phone Toyin Delgado PCP Unavailable Allergies No Known Allergies Medications End Date Status Medication Sig Dispensed Refills Start Date Active LIPASE/PROTEASE/AMYLASE Take by mouth 0 (CREON ORAL) as needed . Active dextroamphetamine-ampheta Take by mouth 0 mine 30 mg Tab daily. Active FLUoxetine (PROZAC) 40 MG Take 40 mg by 0 capsule mouth daily. Active copper (PARAGARD T 380A) by 0 380 square mm IUD Intrauterine route In place . 05/15/2018 Discontinued levonorgestrel (MIRENA) 52 mg by 0 20 mcg/24 hr (5 years) Intrauterine IUD route. 05/15/2018 Discontinued acetaminophen-codeine Take 1 tablet 0 (TYLENOL #3) 300-30 mg by mouth 5 per tablet every 6 (six) hours as needed . 05/15/2018 Discontinued pantoprazole (PROTONIX) Take 1 tablet 60 tablet 2 40 MG tablet (40 mg total) 8 by mouth 2 (two) times daily before meals. 05/05/2018 acetaminophen (TYLENOL) Take 2 30 tablet 0 325 MG tablet tablets (650 8 mg total) by mouth every 4 (four) hours as needed for up to 360 days. 05/10/2018 pregabalin (LYRICA) 100 Take 1 60 capsule 1 MG capsule capsule (100 8 mg total) by mouth 2 (two) times daily. Max Daily Amount: 200 mg Active Problems Problem Noted Date Acute superficial gastritis without hemorrhage 05/10/2017 Epigastric pain 05/06/2017 Abdominal pain 05/04/2017 Encounters Care Team Description Date Type Specialty Se Justin CRNA 05/22/2018 Anesthesia Gastroenterology Event Jacob Sheridan MD UPPER ENDOSCOPY,BIOPSY 05/22/2018 Surgery Gastroenterology Jacob Sheridan MD 05/22/2018 Hospital Gastroenterology Encounter Resource, [facility] Phone 05/15/2018 Hospital Pre-Admission Testing Encounter Shantanu Mei Jr., MD 12/11/2017 Anesthesia Gastroenterology Event after 08/11/2017 Social History Date Tobacco Use Types Packs/Day Years Used Current Every Day Smoker 0.5 10 Smokeless Tobacco: Never Used Tobacco Cessation: Ready to Quit: Yes; Counseling Given: Yes Alcohol Use Drinks/Week oz/Week Comments No Sex Assigned at Date Recorded Not on file Industry Job Start Date Occupation Not on file Not on file Not on file Travel End Travel History Travel Start No recent travel history available. Last Filed Vital Signs Time Taken Vital Sign Reading 05/22/2018 3:15 PM EQUAL OPPORTUNITY SPECIALIST Blood Pressure 118/74 05/22/2018 3:15 PM EQUAL OPPORTUNITY SPECIALIST Pulse 70 05/22/2018 3:15 PM EQUAL OPPORTUNITY SPECIALIST Temperature 36.4 C (97.5 F) 05/22/2018 3:15 PM EQUAL OPPORTUNITY SPECIALIST Respiratory Rate 16 05/22/2018 3:15 PM EQUAL OPPORTUNITY SPECIALIST Oxygen Saturation 100% - Inhaled Oxygen - Concentration 05/22/2018 2:02 PM EQUAL OPPORTUNITY SPECIALIST Weight 86 kg (189 lb 11.2 oz) 05/22/2018 2:02 PM EQUAL OPPORTUNITY SPECIALIST Height 160 cm (5' 3") 05/22/2018 2:02 PM EQUAL OPPORTUNITY SPECIALIST Body Mass Index 33.6 Plan of Treatment Not on file Procedures Comments Procedure Name Priority Date/Time Associated Diagnosis REPORT OF PROCEDURE - 05/22/2018 ENDOSCOPY URL 2:58 PM EQUAL OPPORTUNITY SPECIALIST TISSUE EXAM AP Routine 05/22/2018 2:55 PM EQUAL OPPORTUNITY SPECIALIST UPPER ENDOSCOPY,BIOPSY 05/22/2018 Essential tremor 1:00 PM EQUAL OPPORTUNITY SPECIALIST POCT , URINE Routine 05/22/2018 12:18 PM EQUAL OPPORTUNITY SPECIALIST after 08/11/2017 Results * REPORT OF PROCEDURE - ENDOSCOPY URL (05/22/2018 2:58 PM EQUAL OPPORTUNITY SPECIALIST) Narrative Performed At * Tissue Exam (05/22/2018 2:55 PM EQUAL OPPORTUNITY SPECIALIST) Case Report Surgical Pathology [facility] Report [facility] Case: [id number] Authorizing Provider:Jacob SheridanSAEED guillenollected: 05/22/2018 9420 Ordering Location: [facility] Endoscopy Received: 05/22/2018 1614 Services Pathologist: Jorge Alberto Gallegos MD Specimen:Biopsy, Gastric, GASTRIC BX DIAGNOSIS A. STOMACH, BIOPSY: [facility] - CHRONIC INACTIVE [facility] GASTRITIS, MILD - NO INTESTINAL METAPLASIA, DYSPLASIA OR CARCINOMA SEEN - NO HELICOBACTER PYLORI LIKE ORGANISMS IDENTIFIED ON WARTHIN STARRY STAIN Signing Pathologist Direct Phone Line: [phone] CPT Code(s) 78387 , [address] [facility] CLINICAL HISTORY Essential tremor [facility] SPECIMEN SOURCE Gastric biopsy [facility] GROSS DESCRIPTION The specimen is received in a [facility] formalin-filled container [facility] labeled with the patient's information and labeled "gastric biopsy" and consists of two linear fragments of tang tissue measuring 0.4 and 0.5 cm, submitted entirely in A1. CG/ew MICROSCOPIC DESCRIPTION Performed. [facility] SPECIAL STUDIES The interpretation of this [facility] case included the use of [facility] immunohistochemistry or special stains. Immunohistochemistry technical testing was performed at [facility] Path[facility] where it was developed and its performance characteristics were determined. It has not been cleared or approved by the U.S. Food and Drug Administration. The FDA has determined that such clearance or approval is not necessary. The test is used for clinical purposes. It should not be regarded as investigational or for research. This laboratory is certified under the Clinical Laboratory Improvement Amendments of 1988 (CLIA-88) as qualified to perform high complexity clinical laboratory testing. Specimen Tissue Performing Organization Address City/State/Zipcode Phone Number [facility] [address] [place] [address] MEDICAL CENTER * POCT , urine (05/22/2018 12:18 PM EQUAL OPPORTUNITY SPECIALIST) Test Urine, POC Negative Control line present?, Yes POC Background clear?, POC Yes UPT Cassette Lot #, POC [id number] UPT Cassette Expiration [phone] Date, POC Specimen Urine after 08/11/2017 Insurance Payer Benefit Subscriber ID Type Phone Address Plan / Group [employer] - [employer]GD CARE CIGNA xxxxxxxxxxx HMO/POS HMO/POS/OP EN ACCESS Advance Directives For more information, please contact: [facility] [address] [place] [address] Date Inactivated Comments Code Status Date Activated 05/10/2017 8:00 PM Full Code 05/04/2017 3:10 PM This code status was determined by: Patient
--- OUTSIDE RECORDS SUMMARY | 2018-08-12 11:24 | XMS REPORT | Encounter Summary ---
Author Organization Unknown Address [address] [place] [address] Phone [phone] Care Team Providers Care Cloud Solutions Architect Name Role Phone Toyin Delgado 3 [phone] Reason for Visit Medical Complaint Instructions 1. Rhinitis Medrol (Sujit) 4 mg tablets in a dose pack rhinitis: care instructions upper respiratory infection (cold): care instructions benzonatate 200 mg capsule 2. On examination - fever rapid flu (A+B) 3. Elevated blood pressure elevated blood pressure: care instructions dash diet: care instructions blood pressure monitoring education 4. Body mass index 30+ - obesity body mass index: care instructions learning about healthy weight 5. On examination - pulse rate tachycardia Discussion Note: None recorded. Plan of Care Patient Instructions Rhinitis is swelling and irritation in the nose. Allergies and infections are often the cause. Your nose may run or feel stuffy. Other symptoms are itchy and sore eyes, ears, throat, and mouth. If allergies are the cause, your doctor may do tests to find out what you are allergic to. You may be able to stop symptoms if you avoid the things that cause them. Your doctor may suggest or prescribe medicine to ease your symptoms. Follow-up care is a grewal part of your treatment and safety. Be sure to make and go to all appointments, and call your doctor if you are having problems. It's also a good idea to know your test results and keep a list of the medicines you take. How can you care for yourself at home? If your rhinitis is caused by allergies, try to find out what sets off (triggers) your symptoms. Take steps to avoid these triggers. Avoid yard work. It can stir up both pollen and mold. Do not smoke or allow others to smoke around you. If you need help quitting, talk to your doctor about stop-smoking programs and medicines. These can increase your chances of quitting for good. Do not use aerosol sprays, cleaning products, or perfumes. If pollen is one of your triggers, close your house and car windows during blooming season. Clean your house often to control dust. Keep pets outside. If your doctor recommends nins-cfw-uuvciix medicines to relieve symptoms, take your medicines exactly as prescribed. Call your doctor if you think you are having a problem with your medicine. Use saline (saltwater) nasal washes to help keep your nasal passages open and wash out mucus and bacteria. You can buy saline nose drops at a grocery store or drugstore. Or you can make your own at home by adding 1 teaspoon of salt and 1 teaspoon of baking soda to 2 cups of distilled water. If you make your own, fill a bulb syringe with the solution, insert the tip into your nostril, and squeeze gently. Blow your nose. When should you call for help? Call your doctor now or seek immediate medical care if: You are having trouble breathing. Watch closely for changes in your health, and be sure to contact your doctor if: Mucus from your nose gets thicker (like pus) or has new blood in it. You have new or worse symptoms. You do not get better as expected. Reminders Provider Appointments None recorded. Lab Rapid Flu (A+B) 05/31/2018 [facility] Referral None recorded. Procedures None recorded. Surgeries None recorded. Imaging None recorded. Medications Name Start Date benzonatate 200 mg capsule Take 1 capsule 3 times a day by oral route for 10 days. dextroamphetamine-amphetamine 30 mg tablet dextroamphetamine-amphetamine ER 30 mg 24hr capsule,extend release TK 1 C PO ONCE D fluoxetine 20 mg capsule fluoxetine 40 mg capsule Lyrica 100 mg capsule TK 1 C PO BID Medrol (Sujit) 4 mg tablets in a dose pack Take 1 dose pk by oral route. pantoprazole 40 mg tablet,delayed release ParaGard T 380A 380 square mm intrauterine device Take by intrauterine route. Medications Administered None recorded. Vitals Height Weight BMI Blood Pressure 5 ft 3 in 190 lbs 33.7 kg/m2 (1) 142/84 mm[Hg] (2) 132/80 mm[Hg] Lab Results Date Name Specimen Result Interpretation Description Value Range Status Address Rapid Flu (A+B) Influenza a negative [facility]: [address] [place] [address] Influenza B negative [facility]: [address] [place] [address] Allergies Code Code System Name Reaction Severity Status Onset NKDA Problems Name Status Onset Date Source Depressive Disorder Active 05/31/2018 Procedures Date Name Performed by Cholecystectomy Information not available Information not available Vaccine List Vaccine Type influenza, injectable, quadrivalent 01/17/2017 Td (adult) 03/18/2012 Tdap 09/03/20170.5 mL Social History Smoking Status Current Every Day Smoker Past Encounters 05/31/2018 Rhinitis; On Examination - Fever; Elevated Blood Pressure; Body Mass Index 30+ - Obesity; On Examination - Pulse Rate Tachycardia Rupert EllejeannetteRICK mcP-C: [address] [place] [address], Ph. History of Present Illness Wrvcv-Tqftmbuuix-Fgeaonj Reported By: Patient HPI: Location: head/sinuses. Duration: 3days. Severity: mild. Context: no sick contacts, no foreign travel, non-smoker, allergies. Associated Symptoms: no sputum production, no shortness of breath, no wheezing, no change in number of pillows needed to sleep at night, no sweats, no significant weight gain, no significant weight loss, no sore throat, no vomiting, no diarrhea, no rash, no nausea, no fever, no muscle aches, no headache, morning cough Review of Systems:ROS as noted in the HPI Review of Systems Basic Reported By: Patient Physical Exam Adult Basic, Adult Female Complete Reported By: Patient Constitutional: General Appearance: obese. Level of Distress: NAD. Ambulation: ambulating normally Psychiatric: Mental Status: active and alert. Orientation: to time, to place, to person Lzy-Qtgb-Hgqsx-Throat: Ears: no lesions on external ear, no outer ear tenderness, EACs clear, TMs clear. Hearing: no hearing loss. Nose: no lesions on external nose, nares patent, no septal deviation, nasal passages clear, no sinus tenderness, no nasal discharge. Lips, Teeth, and Gums: no mouth or lip ulcers, no bleeding gums, normal dentition. Oropharynx: moist mucous membranes, no erythema, no exudates, tonsils not enlarged Lungs: Respiratory effort: no dyspnea, no tachypnea, no use of accessory muscles, no intercostal retractions. Auscultation: breath sounds normal Cardiovascular: Heart Auscultation: no murmurs, tachycardia
--- OUTSIDE RECORDS SUMMARY | 2018-08-12 11:24 | XMS REPORT | Encounter Summary ---
Author Organization Unknown Address [address] [place] [address] Phone [phone] Care Team Providers Care Embedded Firmware Engineer Name Role Phone Toyin Delgado 3 [phone] Reason for Visit Medical Complaint Instructions 1. Tobacco user pneumococcal polysaccharide vaccine: what you need to know stopping smoking: care instructions 2. Counseling Tdap (tetanus, diphtheria, pertussis) vaccine: what you need to know 3. Immunization Adacel (Tdap Adolesn/Adult)(PF)2Lf-(2.5-5-3-5mcg)-5 Lf/0.5 mL IM susp 4. Cat bite animal bites: care instructions doxycycline monohydrate 100 mg tablet patient follow up phone call 5. History of gastritis 6. Chronic pancreatitis 7. Body mass index 30+ - obesity body mass index: care instructions A healthy lifestyle: care instructions Discussion Note: None recorded. Plan of Care Reminders Provider Appointments None recorded. Lab None recorded. Referral None recorded. Procedures None recorded. Surgeries None recorded. Imaging None recorded. Medications Name Start Date dextroamphetamine-amphetamine ER 30 mg 24hr capsule,extend release doxycycline monohydrate 100 mg tablet Take 1 tablet twice a day by oral route as needed for 7 days. Lyrica 100 mg capsule TK 1 C PO BID pantoprazole 40 mg tablet,delayed release ParaGard T 380A 380 square mm intrauterine device Take by intrauterine route. Medications Administered None recorded. Vitals Height Weight BMI Blood Pressure 5 ft 3 in 172 lbs 30.5 kg/m2 104/60 mm[Hg] Lab Results None recorded. Allergies Code Code System Name Reaction Severity Status Onset NKDA Problems None recorded. Procedures Date Name Performed by Cholecystectomy Information not available Information not available Vaccine List Vaccine Type influenza, injectable, quadrivalent 01/17/2017 Td (adult) 03/18/2012 Tdap 09/03/20170.5 mL Social History Smoking Status Current Every Day Smoker Past Encounters 09/03/2017 Tobacco User; Counseling; Immunization; Cat Bite; History of Gastritis; Chronic Pancreatitis; Body Mass Index 30+ - Obesity Vera Samuel, MASTER WELDER: [address] [facility], [place] [address], Ph. History of Present Illness Clop-Nkhsamo-Ieixt-Skin Lesion-Bite 1 Reported By: Patient HPI: Location: hands. Quality: painful, tender. Severity: moderate. Duration: has noted for <1 week. Onset/Timing: abrupt onset. Context: no new detergents or skin products, no one else with similar rash, bite/sting exposure. Aggravating factors: ; movement. Associated Symptoms: no fever/chills, no muscle aches, no headache, no cold symptoms, no nausea, no vomiting, no diarrhea, no urinary symptoms Review of Systems:ROS as noted in the HPI Review of Systems None recorded. Physical Exam Adult Basic Reported By: Patient Constitutional: General Appearance: healthy-appearing, well-nourished, well-developed, overweight. Level of Distress: mild distress, moderate distress. Ambulation: ambulating normally Psychiatric: Mental Status: active and alert. Orientation: to time, to place, to person
--- OUTSIDE RECORDS SUMMARY | 2018-08-12 11:24 | XMS REPORT | Encounter Summary ---
Author Organization Unknown Address [address] [place] [address] Phone [phone] Care Team Providers Care Bodybuilder Name Role Phone Toyin Delgado 3 [phone] Reason for Visit Medical Complaint Instructions 1. [...] Mass Index 30+ - Obesity Vera Samuel, CAREER DEVELOPMENT MANAGER: [address] [facility], [place] [address], Ph. History of Present Illness Luew-Vfofsyu-Cdxsy-Skin Lesion-Bite 1 Reported By: Patient HPI: Location: [...] Orientation: to time, to place, to person Lungs: Respiratory effort: no dyspnea, no tachypnea, no use of accessory muscles, no intercostal retractions. Auscultation: breath sounds normal Cardiovascular: Heart Auscultation: RRR, no murmurs Musculoskeletal:: Motor Strength and Tone: normal tone, abnormal motor strength. Joints, Bones, and Muscles: no bony abnormalities, no contractures, no malalignment, limited ROM, tenderness. Extremities: no cyanosis, edema Neurologic: Gait and Station: normal gait, normal station. Sensation: grossly intact Skin: Inspection and palpation: no rash, no ulcer, no abnormal nevi, no induration, no nodules, good turgor, no jaundice; 2 dry closed puncture wounds on the right hand
--- OUTSIDE RECORDS SUMMARY | 2018-08-12 11:24 | XMS REPORT | Encounter Summary ---
Author Organization Unknown Address [address] [place] [address] Phone [phone] Care Team Providers Care Seamless Tube Drawer Name Role Phone Toyin Delgado 3 [phone] Reason for Visit Right Medical Complaint Instructions 1. Dysfunction of right eustachian tube fluticasone 50 mcg/actuation nasal spray,suspension levocetirizine 5 mg tablet 2. Cervical lymphadenopathy Discussion Note Pt is in NAD; Verbalizes understanding of all instructions with no questions at this time. Patient educational handouts: No information available. Plan of Care Patient Instructions Take fluticasone as needed for congestion. [place] one spray in each nostril twice a day. Take a warm, steamy shower, blow your nose thereafter, and spray in each nostril. Tilt your head up for about 10 seconds and breath through your mouth. Do not sniff or snort the medication in or else the medication will go to your throat and not be absorbed appropriately. Start trial of levocetirizine as directed. Alternate with Ibuprofen and acetaminophen every 4hrs as needed for ear pain. Take medications as prescribed and follow up with a PCP or ENT within 2-3 if symptoms worsen as discussed. Reminders Provider Appointments None recorded. Lab None recorded. Referral None recorded. Procedures None recorded. Surgeries None recorded. Imaging None recorded. Medications Name Start Date fluticasone 50 mcg/actuation nasal spray,suspension [place] 2 sprays every day by intranasal route as needed for 10 days. levocetirizine 5 mg tablet Take 1 tablet every day by oral route as needed. Take at bedtime. Lyrica 100 mg capsule TK 1 C PO BID Medications Administered None recorded. Vitals Height Weight BMI Blood Pressure 5 ft 3 in 180 lbs 31.9 kg/m2 110/80 mm[Hg] Lab Results None recorded. Allergies Code Code System Name Reaction Severity Status Onset NKDA Problems None recorded. Procedures Date Name Performed by Cholecystectomy Information not available Information not available Vaccine List None recorded. Social History Smoking Status Current Every Day Smoker Past Encounters 01/21/2017 Dysfunction of Right Eustachian Tube; Cervical Lymphadenopathy Maria Antonia Barragan, [facility]-C: [address] [facility], [place] [address], Ph. History of Present Illness Ear Complaint Reported By: Patient HPI: Location: right. Quality: ears feel full/plugged, muffled, throbbing, aching. Severity: continuous, moderate, current pain 7/10. Duration: constant; X 2 days. Onset/Timing: worse, abrupt onset. Context: no sick contacts, no recent swimming/water in ear, no exposure to second hand smoke, no head trauma, not grinding teeth, no recent air travel. Modifying factors: does not hurt to chew, hurts to lie on, or pull on ear. Associated Symptoms: no discharge from the ears, no nose/sinus problems, no ringing in the ears, no fever, no chills, no dizziness, no vertigo, no headache, no muscle aches, popping noise in the ears, earache Review of Systems:ROS as noted in the HPI Review of Systems Basic Reported By: Patient Physical Exam Adult Basic, Adult Female Complete Reported By: Patient Constitutional: General Appearance: healthy-appearing, well-nourished, well-developed. Level of Distress: NAD. Ambulation: ambulating normally Psychiatric: Mental Status: active and alert. Orientation: to time, to place, to person Fvu-Kzvo-Gaewq-Throat: Ears: no lesions on external ear, EACs clear, TMs clear, outer ear tenderness, middle ear fluid. Hearing: no hearing loss. Nose: no lesions on external nose, nares patent, no septal deviation, nasal passages clear, no sinus tenderness, no nasal discharge. Lips, Teeth, and Gums: no mouth or lip ulcers, no bleeding gums, normal dentition. Oropharynx: moist mucous membranes, no erythema, no exudates, tonsils not enlarged Neck: Neck: supple. Lymph Nodes: anterior cervical LAD Lungs: Respiratory effort: no dyspnea, no tachypnea, no use of accessory muscles, no intercostal retractions. Auscultation: breath sounds normal Cardiovascular: Heart Auscultation: RRR, no murmurs Neurologic: Gait and Station: normal gait, normal station
--- OUTSIDE RECORDS SUMMARY | 2018-08-12 11:24 | XMS REPORT | Continuity of Care Document ---
Author Author [facility] Interface Address Unknown Phone Unavailable Problems Problem Status Onset Date Classification Date Reported Comments Source On examination - pulse rate tachycardia 05/31/2018 Diagnosis 05/31/2018 [facility] Body mass index 30+ - obesity 05/31/2018 Diagnosis 05/31/2018 [facility] Elevated blood pressure 05/31/2018 Diagnosis 05/31/2018 [facility] Rhinitis 05/31/2018 Diagnosis 05/31/2018 [facility] On examination - fever 05/31/2018 Diagnosis 05/31/2018 [facility] Depressive Disorder 05/31/2018 Problem 05/31/2018 [facility] Chronic pancreatitis 09/04/2017 Diagnosis 09/04/2017 [facility] History of gastritis 09/04/2017 Diagnosis 09/04/2017 [facility] Cat bite 09/04/2017 Diagnosis 09/04/2017 [facility] Immunization 09/04/2017 Diagnosis 09/04/2017 [facility] Counseling 09/04/2017 Diagnosis 09/04/2017 [facility] Tobacco user 09/04/2017 Diagnosis 09/04/2017 [facility] Dysfunction of right eustachian tube 01/21/2017 Diagnosis 01/21/2017 [facility] Cervical lymphadenopathy 01/21/2017 Diagnosis 01/21/2017 [facility] Medications Medication Details Route Status Patient Instructions Ordering Provider Order Date Source Amoxicillin/Potassium Clav (Augmentin 875-125 Tablet) 1 Each Tablet Twice A Day Active [facility] 09/04/2017 [facility] 24 HR Amphetamine aspartate 7.5 MG / Amphetamine Sulfate 7.5 MG / Dextroamphetamine saccharate 7.5 MG / Dextroamphetamine Sulfate 7.5 MG Extended Release Oral Capsule dextroamphetamine-amphetamine ER 30 mg 24hr capsule,extend release TK 1 C PO ONCE D Active [facility] Doxycycline Monohydrate 100 MG Oral Tablet doxycycline monohydrate 100 mg tablet Take 1 tablet twice a day by oral route as needed for 7 days. Active [facility] pregabalin 100 MG Oral Capsule [Lyrica] Lyrica 100 mg capsule TK 1 C PO BID Active [facility] pantoprazole 40 MG Delayed Release Oral Tablet pantoprazole 40 mg tablet,delayed release Active [facility] ParaGard T 380A 380 square mm intrauterine device ParaGard T 380A 380 square mm intrauterine device Take by intrauterine route. Active [facility] Fluticasone propionate 0.05 MG/ACTUAT Metered Dose Nasal [place] fluticasone 50 mcg/actuation nasal spray,suspension [place] 2 sprays every day by intranasal route as needed for 10 days. Active [facility] levocetirizine dihydrochloride 5 MG Oral Tablet levocetirizine 5 mg tablet Take 1 tablet every day by oral route as needed. Take at bedtime. Active [facility] benzonatate 200 MG Oral Capsule benzonatate 200 mg capsule Take 1 capsule 3 times a day by oral route for 10 days. Active [facility] Amphetamine aspartate 7.5 MG / Amphetamine Sulfate 7.5 MG / Dextroamphetamine saccharate 7.5 MG / Dextroamphetamine Sulfate 7.5 MG Oral Tablet dextroamphetamine- amphetamine 30 mg tablet Active [facility] Fluoxetine 20 MG Oral Capsule fluoxetine 20 mg capsule Active [facility] Fluoxetine 40 MG Oral Capsule fluoxetine 40 mg capsule Active [facility] Medrol (Sujit) 4 mg tablets in a dose pack Medrol (Sujit) 4 mg tablets in a dose pack Take 1 dose pk by oral route. Active [facility] Amphet Asp/Amphet/D-Amphet (Adderall 30 Mg Tablet) 30 Mg Tablet Active [facility] Hyoscyamine Sulfate (Levsin) 0.125 Mg Tablet Active [facility] Nortriptyline Hcl 10 Mg Cap Twice A Day Active [facility] Pantoprazole Sodium (Protonix) 40 Mg Tablet.dr Twice A Day Active [facility] Pregabalin (Lyrica) 25 Mg Cap Daily Active [facility] Pregabalin (Lyrica) 50 Mg Cap Daily Active [facility] Allergies, Adverse Reactions, Alerts Substance Category Reaction Severity Reaction type Status Date Reported Comments Source Immunizations Immunization Date Given Site Status Last Updated Comments Source Tdap 09/04/2017 completed [facility] influenza, injectable, quadrivalent 01/17/2017 completed [facility] Td (adult) 03/18/2012 completed [facility] Results Order Name Results Value Reference Range Date Interpretation Comments Source Influenza A negative 05/31/2018 [facility] Influenza B negative 05/31/2018 [facility] Clostridium difficile A and B toxin assay Clostridium difficile A and B toxin assay NEGATIVE NEGATIVE 06/21/2017 [facility] Stool calprotectin measurement (mass/mass) Stool calprotectin measurement (mass/mass) null 0 - 120 06/21/2017 [facility] Stool lactoferrin detection Stool lactoferrin detection NEGATIVE NEGATIVE 06/21/2017 [facility] Urine human chorionic gonadotropin (hCG) detection Urine human chorionic gonadotropin (hCG) detection NEGATIVE NEGATIVE 06/21/2017 [facility] Vital Signs Vital Sign Value Date Comments Source Diastolic (mm Hg) 80 05/31/2018 [facility] Height 63 05/31/2018 [facility] Systolic (mm Hg) 132 05/31/2018 [facility] Weight 190 05/31/2018 [facility] Diastolic (mm Hg) 60 09/03/2017 [facility] Height 63 09/03/2017 [facility] Systolic (mm Hg) 104 09/03/2017 [facility] Weight 172 09/03/2017 [facility] Diastolic (mm Hg) 80 01/21/2017 [facility] Height 63 01/21/2017 [facility] Systolic (mm Hg) 110 01/21/2017 [facility] Weight 180 01/21/2017 [facility] Encounters Location Location Details Encounter Type Encounter Number Reason For Visit Attending Provider ADM Date DC Date Status Source [place] [facility] - [id number] Child-C: [address] [place] [address], Ph. [id number] Maria Antonia Barragan 01/21/2017 [facility] Registered [facility] [id number] SEBASTIEN MARQUES MD 06/21/2017 [facility] [place] - [facility] - [id number] Baker, DOG OBEDIENCE INSTRUCTOR: [address] [place] [address], Ph. [id number] Vera Samuel 09/03/2017 [facility] [place] - [facility] - [id number] Vera Samuel, DOG OBEDIENCE INSTRUCTOR: [address] [place] [address], Ph. [id number] Prema Samuel 09/03/2017 [facility] Departed Emergency Room [id number] MICH MONGE MD 09/03/2017 09/04/2017 [facility] [place] - [facility] - [id number] SOLE Thompson-C: [address] [place] [address], Ph. [id number] Rupert Khoury 05/31/2018 [facility] Procedures Procedure Code Date Perfomer Comments Source COLONOSCOPY AND BIOPSY [id number] 06/21/2017 J[facility]AL[facility] COLONOSCOPY W/LESION REMOVAL [id number] 06/21/2017 [facility] Cholecystectomy [facility]
[2018-08-12] MEDS ORDERED: CEFAZOLIN SOD 500 MG VIAL IM ONE (14:00)
[2018-08-12] MEDS ORDERED: CEFAZOLIN SOD 1 GM VIAL IM ONE (14:15)
[2018-08-12] MEDS ORDERED: CEFAZOLIN SOD 1 GM VIAL ONE (14:51)
--- NOTE | 2018-08-12 15:16 | Diagnostic Imaging Report ---
FOOT 3 VIEW RT - [facility] - 3 views HISTORY: Pain. Right ankle pain. COMPARISON: None available. FINDINGS: Bones: No acute displaced fracture. Osseous alignment is within normal limits. Calcaneal enthesophyte Joints: The joint spaces are well-maintained. Soft tissues: The soft tissues appear unremarkable. IMPRESSION: No acute radiographic abnormality. Signed by: Dr. Lee Natarajan M.D. on 08/12/2018 3:12 PM
[2018-08-12] MEDS ORDERED: LEVAQUIN500 MG PO (16:13)
[2018-08-12 16:37] VITALS: BP 137/88
--- NOTE | 2018-08-15 09:26 | Diagnostic Imaging Report ---
PROCEDURE:ANKLE 3 VIEW RT - [facility] COMPARISON:None. INDICATIONS:ankle pain FINDINGS: There is soft tissue swelling in the lateral ankle without evidence of fracture or malalignment. The ankle mortise is preserved. Small plantar calcaneal spur. Please refer to the concurrently performed foot radiograph for further details. CONCLUSION: Lateral ankle soft tissue edema without acute osseous abnormality. Dictated by: SEAN CARLSON M.D. on 08/15/2018 at 9:29 Electronically approved by: SEAN CARLSON M.D. on 08/15/2018 at 9:29
== END 2018-08-12 16:38 | disposition home or self-care (01) ==
LOC: FSED 11:20
DX: L03.115 Cellulitis of right lower limb (principal); S90.511A Abrasion, right ankle, initial encounter
CPT/HCPCS: 73610; 73630; 80048; 81025; 85025; 99283; J0690

== ENCOUNTER 2021-11-12 15:46 | Emergency (ER) | payer OTHER ==
[~2021-11-12] VITALS: Ht 160 cm; Wt 108.9 kg
[~2021-11-12 15:46] MED LIST changes: +LEVAQUIN500 MG PO
[2021-11-12] MEDS ORDERED: KETOROLAC TROMETHAMINE 30 MG/ML VIAL IM STA (15:51)
== END 2021-11-12 16:32 | disposition home or self-care (01) ==
LOC: ER 15:52
DX: R51.9 Headache, unspecified (principal); M79.18 Myalgia, other site; I10 Essential (primary) hypertension; K21.9 Gastro-esophageal reflux disease without esophagitis; F32.A Depression, unspecified; F90.9 Attention-deficit hyperactivity disorder, unspecified type
CPT/HCPCS: 93005; 99282; J1885